=== PATIENT | female | born 1955 | race Caucasian/White ===

== ENCOUNTER → 2017-08-21 | Outpatient (CLI) | payer OTHER ==
[~2017-08-21] MED LIST: AMIT50; AMIT50 PO; ATOM60; ATOR10; ATOR40TA PO; BUSP15; BUSP15 PO; CLIN300 PO; DILT30 PO; Excedrin Extra1 EACH; LAVAP17G PO; METO10 PO; METO50 PO; METO50ER PO; NAPR500; NAPR500 PO; OMEP20ER PO; TRIHYD253A; TRIHYD253A PO; VENL150ER PO; VENL75ER
[2017-08-22 11:34] LABS: Candida species (DNA Probe) Negative (NEGATIVE); G. vaginalis (DNA Probe) Negative (NEGATIVE); T. vaginalis (DNA Probe) Negative (NEGATIVE)
== END ==
LOC: LAB SHORT 14:30
PROVIDERS: Physician Assistant
DX: N39.0 Urinary tract infection, site not specified (principal); N89.8 Other specified noninflammatory disorders of vagina
CPT/HCPCS: 87086; 87480; 87510; 87660

== ENCOUNTER → 2017-10-26 | Outpatient (CLI) | payer OTHER ==
[2017-10-26 19:14] LABS: Appearance, Urine Clear (Clear); Bilirubin, Urine Neg (Neg); Blood, Urine 1+ (Neg); Color, Urine Yellow (P-Yellow); Glucose Qualitative, Urine Neg (Neg); Ketones, Urine 1+ (Neg); Leukocyte Esterase, Urine 3+ (Neg); Nitrite, Urine Pos (Neg); Protein, Urine 1+ (Neg); Specific Gravity, Urine 1.025 (1.003-1.022); Urobilinogen, Urine NORM (Normal)
[2017-10-26 19:28] LABS: Bacteria Not Seen /hpf; Red Blood Cells, Urine Not Seen /hpf (0-2); Squamous Epithelial Cells Mod /hpf (Few); White Blood Cells, Urine Not Seen /hpf (0-5)
[2017-10-30 22:13] LABS: MDA Not Detected (NOTDET); MDEA Not Detected (NOTDET); MDMA Not Detected (NOTDET)
[2017-10-31 02:55] LABS: Methadone Metab. by GC/MS Not Detected (NOTDET)
== END | disposition home or self-care (01) ==
LOC: LAB 13:48 → LAB SHORT 13:48
PROVIDERS: Physician Assistant
DX: N39.0 Urinary tract infection, site not specified (principal); F90.9 Attention-deficit hyperactivity disorder, unspecified type; R30.0 Dysuria; Z79.891 Long term (current) use of opiate analgesic
CPT/HCPCS: 81001; 87086; G0480

== ENCOUNTER 2021-04-05 19:40 | Inpatient (IN) | payer OTHER ==
[~2021-04-05] VITALS: Ht 167.6 cm; Wt 87.2 kg
[~2021-04-05 19:40] MED LIST changes: -BUSP15 PO; +Buspirone HCl15 MG PO; +EXTRA PAIN REL1 EAC2 PO
[2021-04-05 20:36] LABS: BASOPHILS ABSOLUTE AUTO 0.04 K/mm3 (0.00-0.23); BASOPHILS PERCENT AUTO 1 % (0-2); EOSINOPHILS ABSOLUTE AUTO 0.25 K/mm3 (0.00-0.68); EOSINOPHILS PERCENT AUTO 3 % (0-6); Hematocrit 37.4 % (33.0-51.0); Hemoglobin 11.5 g/dL (11.5-16.0); IMMATURE GRAN ABSOLUTE AUTO 0.02 K/mm3 (0.00-0.10); IMMATURE GRAN PERCENT AUTO 0 % (0-1); LYMPHOCYTES ABSOLUTE AUTO 2.54 K/mm3 (0.84-5.20); LYMPHOCYTES PERCENT AUTO 32 % (21-46); MONOCYTES ABSOLUTE AUTO 0.59 K/mm3 (0.16-1.47); MONOCYTES PERCENT AUTO 8 % (4-13); Mean Corpuscular HGB 25.3 pg (26.0-34.0); Mean Corpuscular HGB Conc 30.7 g/dL (31.5-36.5); Mean Corpuscular Volume 82 fL (80-100); Mean Platelet Volume 10.6 fL (9.1-12.4); NEUTROPHILS ABSOLUTE AUTO 4.45 K/mm3 (1.96-9.15); NEUTROPHILS PERCENT AUTO 56 % (41-73); Platelet Count 268 K/mm3 (150-400); RDW Coefficient Variation 16.6 % (11.7-14.2); RDW Standard Deviation 49.8 fL (35.1-46.3); Red Blood Cell Count 4.54 M/mm3 (3.80-5.20); White Blood Cell Count 7.89 K/mm3 (4.00-11.30)
[2021-04-05 20:45] LABS: Source, Urine Clean Catch
[2021-04-05 20:51] LABS: Blood, Urine 1+ (Neg); Glucose Qualitative, Urine Neg (Neg); Ketones, Urine 1+ (Neg); Leukocyte Esterase, Urine 1+ (Neg); Nitrite, Urine Neg (Neg); Protein, Urine 2+ (Neg); Specific Gravity, Urine 1.025 (1.003-1.022); Urobilinogen, Urine 1+ (Normal)
[2021-04-05 21:02] LABS: Bilirubin, Urine 1+ (Neg); Color, Urine Yellow (P-Yellow)
[2021-04-05 21:04] LABS: Amorphous Light (0-Heavy); Appearance, Urine Hazy (Clear); Bacteria Few /hpf; Calcium Oxalate Crystals Many /hpf; Mucus Light (0-Heavy); Red Blood Cells, Urine 0-2 /hpf (0-2); Squamous Epithelial Cells Many /hpf (Few); White Blood Cells, Urine 0-2 /hpf (0-5)
[2021-04-05 21:04] LABS: Albumin, Blood 3.2 g/dL (3.4-5.0); Albumin/Globulin Ratio 0.9 (0.8-1.8); Bilirubin, Total 0.2 mg/dL (0.1-1.0); Bun/Creatinine Ratio 8.4 (12.0-20.0); Creatinine, Blood 0.95 mg/dL (0.40-1.00); Globulin, Blood 3.7 g/dL (2.2-4.0); Potassium, Blood 3.7 mmol/L (3.5-5.5); Total Protein, Blood 6.9 g/dL (6.4-8.2)
[2021-04-05 21:09] LABS: U Amphetamine Screen DETECTED; U Barbituate Screen Not Detected; U Benzodiazapine Screen Not Detected; U Buprenorphine Screen Not Detected; U Cannabinoids Screen DETECTED; U Cocaine Screen Not Detected; U Methadone Screen Not Detected; U Methamphetamine Screen DETECTED; U Opiates Screen Not Detected; U Oxycodone Screen Not Detected; U Phencyclidine Screen Not Detected; U Propoxyphene Screen Not Detected
[2021-04-05 23:15] LABS: CHOL/HDL RATIO 3.2; Cholesterol 164 mg/dL (50-200); HDL Cholesterol 51 mg/dL (>39); LDL/HDL RATIO 1.8; Low Density Lipoprotein Chol 91 mg/dL (0-110); Triglycerides 109 mg/dL (30-160); Very Low Density Lipoprot Chol 21 mg/dL (6-32)
[2021-04-06 00:30] LABS: SARS-Cov-2 (COVID-19) PCR, MMC NEGATIVE (NEGATIVE)
[2021-04-07] MEDS ORDERED: Aspir 8181 MG PO (11:39)
[2021-04-07] MEDS ORDERED: METO10 PO (11:39)
[2021-04-07] MEDS ORDERED: ATOR40TA PO (11:40)
[2021-04-07] MEDS ORDERED: CLOP75 PO (11:40)
[2021-04-07] MEDS ORDERED: LISI20 PO (11:40)
[2021-04-07 15:23] LABS: SARS-Cov-2 (COVID-19) PCR, MMC NEGATIVE (NEGATIVE)
== END 2021-04-08 17:13 | disposition home health service (06) | DRG 66 ==
LOC: ER 19:40 → ERHOLD 19:41 → MEDS 19:41 → ENPENDDIS 04-08 10:20 → MEDS 04-08 17:13
PROVIDERS: Emergency Medicine; Hospitalist; Physician Assistant; ADMIT Family Medicine
DX: I63.9 Cerebral infarction, unspecified (principal); E78.5 Hyperlipidemia, unspecified; F15.10 Other stimulant abuse, uncomplicated; I10 Essential (primary) hypertension; I63.312 Cerebral infarction due to thrombosis of left middle cerebral artery; Z20.822 Contact with and (suspected) exposure to COVID-19; J43.9 Emphysema, unspecified; I08.2 Rheumatic disorders of both aortic and tricuspid valves; Z88.2 Allergy status to sulfonamides; Z88.5 Allergy status to narcotic agent; Z88.8 Allergy status to other drugs, medicaments and biological substances; Z79.899 Other long term (current) drug therapy; Z98.890 Other specified postprocedural states; R47.01 Aphasia; E78.00 Pure hypercholesterolemia, unspecified; I65.23 Occlusion and stenosis of bilateral carotid arteries
CPT/HCPCS: 36415; 70450; 70496; 70498; 80053; 80061; 81001; 84484; 85025; 92507; 92523; 93005; 93010; 93306; 96372; 97110; 97116; 97129-GO-CO; 97162; 97166; 97530; 97535; 99285-25; A9270; G0378; J1650; Q9967; U0004

== ENCOUNTER 2022-02-28 06:08 | Day surgery (SDC) | payer MEDICARE, OTHER ==
[~2022-02-28] VITALS: Ht 167.6 cm; Wt 75.0 kg
[~2022-02-28 06:08] MED LIST changes: +Aspir 8181 MG PO; +CLOP75 PO; +LISI20 PO
[2022-02-28] MEDS ORDERED: ALBU2.5V5 INH (06:48)
[2022-02-28] MEDS ORDERED: GABA300 PO (06:49)
[2022-02-28] MEDS ORDERED: MELO7.5 PO (06:49)
--- NOTE | 2022-02-28 08:19 | NUR ---
PT VERBALIZES UNDERSTANDING WRITTEN AND VERBAL ORDERS. PT DC TO HOME VIA DAUGHTER. IV DC'D. CATH INTACT. PRESSURE DSG APPLIED. DC TO HOME VIA WC
== END 2022-02-28 23:07 | disposition home or self-care (01) ==
LOC: MHTC 06:08
DX: I63.40 Cerebral infarction due to embolism of unspecified cerebral artery (principal); R47.01 Aphasia; I11.0 Hypertensive heart disease with heart failure; I50.30 Unspecified diastolic (congestive) heart failure; I77.810 Thoracic aortic ectasia; I65.29 Occlusion and stenosis of unspecified carotid artery; E78.5 Hyperlipidemia, unspecified; J44.9 Chronic obstructive pulmonary disease, unspecified; Z79.82 Long term (current) use of aspirin
CPT/HCPCS: 93312; 93325; A9270; J2370; J2704; J7030

== ENCOUNTER → 2022-11-22 | Outpatient (CLI) | payer MEDICARE, OTHER ==
[~2022-11-22] MED LIST changes: +ALBU2.5V5 INH; +GABA300 PO; +MELO7.5 PO
[2022-11-22 15:33] LABS: Source, Urine Clean Catch
[2022-11-22 17:35] LABS: Appearance, Urine Clear (Clear); Bilirubin, Urine Neg (Neg); Blood, Urine Neg (Neg); Color, Urine Yellow (P-Yellow); Glucose Qualitative, Urine Neg (Neg); Ketones, Urine Neg (Neg); Leukocyte Esterase, Urine Neg (Neg); Nitrite, Urine Neg (Neg); Protein, Urine Neg (Neg); Urobilinogen, Urine NORM (Normal)
== END | disposition home or self-care (01) ==
LOC: LAB SHORT 12:00 → LAB 12:00
PROVIDERS: Student in an Organized Health Care Education/Training Program
DX: R39.15 Urgency of urination (principal)
CPT/HCPCS: 81003

== ENCOUNTER → 2023-05-17 | Outpatient (CLI) | payer MEDICARE, OTHER ==
[2023-05-17 10:42] LABS: Source, Urine Clean Catch
[2023-05-17 11:48] LABS: Appearance, Urine Clear (Clear); Bilirubin, Urine Neg (Neg); Blood, Urine Neg (Neg); Color, Urine Yellow (P-Yellow); Glucose Qualitative, Urine Neg (Neg); Ketones, Urine Neg (Neg); Leukocyte Esterase, Urine 1+ (Neg); Nitrite, Urine Neg (Neg); Protein, Urine Neg (Neg); Specific Gravity, Urine 1.015 (1.003-1.022); Urobilinogen, Urine NORM (Normal); pH, Urine 6.5 (5.0-8.0)
[2023-05-17 12:18] LABS: Bacteria Rare /hpf; Red Blood Cells, Urine Not Seen /hpf (0-2); Squamous Epithelial Cells Few /hpf (Few)
== END ==
LOC: LAB 10:41 → LAB SHORT 10:41
PROVIDERS: Student in an Organized Health Care Education/Training Program
DX: N39.43 Post-void dribbling (principal); R39.15 Urgency of urination; R39.11 Hesitancy of micturition
CPT/HCPCS: 81001; 87086

== ENCOUNTER → 2025-04-09 | Outpatient (CLI) | payer OTHER ==
[2025-04-09 19:09] LABS: BASOPHILS ABSOLUTE AUTO 0.03 K/mm3 (0.00-0.23); BASOPHILS PERCENT AUTO 0 % (0-2); EOSINOPHILS ABSOLUTE AUTO 0.18 K/mm3 (0.00-0.68); EOSINOPHILS PERCENT AUTO 2 % (0-6); Hematocrit 41.2 % (33.0-51.0); Hemoglobin 13.1 g/dL (11.5-16.0); IMMATURE GRAN ABSOLUTE AUTO 0.02 K/mm3 (0.00-0.10); IMMATURE GRAN PERCENT AUTO 0 % (0-1); LYMPHOCYTES ABSOLUTE AUTO 2.52 K/mm3 (0.84-5.20); LYMPHOCYTES PERCENT AUTO 33 % (21-46); MONOCYTES ABSOLUTE AUTO 0.58 K/mm3 (0.16-1.47); MONOCYTES PERCENT AUTO 8 % (4-13); Mean Corpuscular HGB Conc 31.8 g/dL (31.5-36.5); Mean Corpuscular Volume 90 fL (80-100); NEUTROPHILS ABSOLUTE AUTO 4.34 K/mm3 (1.96-9.15); NEUTROPHILS PERCENT AUTO 57 % (41-73); NRBC ABSOLUTE 0.00 K/mm3 (0.00-0.02); NRBC Auto 0.0 /100 WBC (0.0-0.2); Platelet Count 260 K/mm3 (150-400); RDW Coefficient Variation 14.7 % (11.7-14.2); RDW Standard Deviation 49.4 fL (35.1-46.3)
[2025-04-09 20:24] LABS: Alanine Aminotransfer (ALT/SGP 31.0 U/L (12-78); Albumin, Blood 3.6 g/dL (3.4-5.0); Albumin/Globulin Ratio 1.0 (0.8-1.8); Anion Gap 7.0 mmol/L (3-11); Aspartate Aminotrans (AST/SGOT 21.0 U/L (12-37); Bilirubin, Total 0.3 mg/dL (0.1-1.0); Blood Urea Nitrogen 19.0 mg/dL (8-24); CO2, Blood 31.0 mmol/L (21-32); Calcium, Blood 8.9 mg/dL (8.5-10.1); Chloride, Blood 103.0 mmol/L (98-108); Creatinine, Blood 0.86 mg/dL (0.40-1.00); Globulin, Blood 3.6 g/dL (2.2-4.0); Glucose, Blood 106.0 mg/dL (70-99); Potassium, Blood 4.5 mmol/L (3.5-5.5); Sodium, Blood 136.0 mmol/L (136-145); Thyroid Stimulating Hormone 0.888 uIU/mL (0.360-4.800); Total Protein, Blood 7.2 g/dL (6.4-8.2)
== END ==
LOC: LAB 18:58 → LAB SHORT 18:58
PROVIDERS: Student in an Organized Health Care Education/Training Program
DX: R23.2 Flushing (principal); M54.42 Lumbago with sciatica, left side; M54.41 Lumbago with sciatica, right side; M43.16 Spondylolisthesis, lumbar region; M41.9 Scoliosis, unspecified; F41.9 Anxiety disorder, unspecified; Z79.899 Other long term (current) drug therapy
CPT/HCPCS: 80053; 82607; 84443; 85025; 85651

== ENCOUNTER 2025-06-26 11:11 | Emergency (ER) | payer OTHER ==
[~2025-06-26] VITALS: Ht 167.6 cm; Wt 90.3 kg
[2025-06-26 12:00] LABS: BASOPHILS ABSOLUTE AUTO 0.03 K/mm3 (0.00-0.23); BASOPHILS PERCENT AUTO 0 % (0-2); EOSINOPHILS ABSOLUTE AUTO 0.13 K/mm3 (0.00-0.68); EOSINOPHILS PERCENT AUTO 2 % (0-6); Hematocrit 43.9 % (33.0-51.0); Hemoglobin 13.9 g/dL (11.5-16.0); IMMATURE GRAN ABSOLUTE AUTO 0.02 K/mm3 (0.00-0.10); IMMATURE GRAN PERCENT AUTO 0 % (0-1); LYMPHOCYTES ABSOLUTE AUTO 1.81 K/mm3 (0.84-5.20); LYMPHOCYTES PERCENT AUTO 21 % (21-46); MONOCYTES ABSOLUTE AUTO 0.61 K/mm3 (0.16-1.47); MONOCYTES PERCENT AUTO 7 % (4-13); Mean Corpuscular HGB Conc 31.7 g/dL (31.5-36.5); Mean Corpuscular Volume 88 fL (80-100); NEUTROPHILS ABSOLUTE AUTO 6.17 K/mm3 (1.96-9.15); NEUTROPHILS PERCENT AUTO 70 % (41-73); NRBC ABSOLUTE 0.00 K/mm3 (0.00-0.02); NRBC Auto 0.0 /100 WBC (0.0-0.2); Platelet Count 262 K/mm3 (150-400); RDW Coefficient Variation 14.5 % (11.7-14.2); RDW Standard Deviation 46.5 fL (35.1-46.3)
[2025-06-26 12:05] LABS: pH Blood Venous 7.43 (7.34-7.37)
[2025-06-26 12:23] LABS: Alanine Aminotransfer (ALT/SGP 24.0 U/L (12-78); Albumin, Blood 4.0 g/dL (3.4-5.0); Albumin/Globulin Ratio 1.1 (0.8-1.8); Anion Gap 6.0 mmol/L (3-11); Aspartate Aminotrans (AST/SGOT 23.0 U/L (12-37); Bilirubin, Total 0.4 mg/dL (0.1-1.0); Blood Urea Nitrogen 15.0 mg/dL (8-24); CO2, Blood 28.0 mmol/L (21-32); Calcium, Blood 9.6 mg/dL (8.5-10.1); Chloride, Blood 106.0 mmol/L (98-108); Creatinine, Blood 0.83 mg/dL (0.40-1.00); Globulin, Blood 3.6 g/dL (2.2-4.0); Glucose, Blood 129.0 mg/dL (70-99); Potassium, Blood 4.2 mmol/L (3.5-5.5); Sodium, Blood 136.0 mmol/L (136-145); Total Protein, Blood 7.6 g/dL (6.4-8.2)
[2025-06-26 12:30] VITALS: BP 152/125
[2025-06-26 12:50] LABS: CORONAVIRUS COVID-19 AG Negative (NEGATIVE)
[2025-06-26] MEDS ORDERED: ALBU90OI INH (13:22)
== END 2025-06-26 14:00 | disposition home or self-care (01) ==
LOC: ER 11:11
PROVIDERS: Emergency Medicine
DX: J44.1 Chronic obstructive pulmonary disease with (acute) exacerbation (principal); F17.200 Nicotine dependence, unspecified, uncomplicated; Z79.82 Long term (current) use of aspirin; Z79.899 Other long term (current) drug therapy; Z88.2 Allergy status to sulfonamides; Z88.5 Allergy status to narcotic agent; Z12.31 Encounter for screening mammogram for malignant neoplasm of breast; R92.323 Mammographic fibroglandular density, bilateral breasts
CPT/HCPCS: 71046; 77063; 77067; 80053; 82803; 84484; 85025; 87428-QW; 93005; 93010; 99285-25